=== PATIENT | male | born 1950 | race Caucasian/White ===

== ENCOUNTER 2018-04-03 07:04 | Inpatient (IN) ==
[2018-04-03] MEDS ORDERED: Chlorhexidine 4% Topical 120 APPLIC/120 ML Bottle TOPICAL SCH (08:15)
[2018-04-03] MEDS ORDERED: Metoprolol Tartrate 25 MG Tablet PO ONE (08:15)
[2018-04-03] MEDS ORDERED: Vancomycin Inj 1,000 MG in Sodium Chlor 0.9% Inj 250 ML IV.SIG SCH (08:15)
[2018-04-03] MEDS ORDERED: Sodium Chlor 0.9% Inj 500 ML IV.CONT ONE (08:15)
[2018-04-03] MEDS ORDERED: Chlorhexidine Gluconate 2% 1 Pack (2 Cloths) TOPICAL ONE (08:15)
[2018-04-03] MEDS ORDERED: ceFAZolin 2 GM Premix Inj 2 GM/50 ML PIGGYBACK IV.SIG SCH (08:15)
[2018-04-03] MEDS ORDERED: SODIUM CHLOR 0.9% IV.SIG SCH ×2 (08:30→14:00)
[2018-04-03] MEDS ORDERED: Dexamethasone Inj 20 MG/5 ML Vial IV.PUSH SCH (08:30)
[2018-04-03] MEDS ORDERED: Sodium Chlor 0.9% Inj 40 ML, Bupivacaine Liposo PF 1.3% Inj 20 ML P-ARTICULR SCH ×2 (08:30)
[2018-04-03] MEDS ORDERED: TRANEXAMIC ACID IV.SIG SCH ×2 (08:30→14:00)
[2018-04-03] MEDS ORDERED: Ketamine Inj 50 MG/5 ML Syringe IV.PUSH ONE (09:37)
[2018-04-03] MEDS ORDERED: fentaNYL Citrate Inj 250 MCG/5 ML Ampul ONE (09:38)
[2018-04-03] MEDS ORDERED: Famotidine PF Inj 20 MG/2 ML Vial ONE (09:38)
[2018-04-03] MEDS ORDERED: fentaNYL Citrate Inj 100 MCG/2 ML Ampul ONE ×2 (09:38→13:09)
[2018-04-03] MEDS ORDERED: Lidocaine PF 1% Inj 5 ML Syringe OTHER ONE (10:41)
[2018-04-03] MEDS ORDERED: Glycopyrrolate Inj 1 MG/5 ML Syringe IV.PUSH ONE (10:41)
[2018-04-03] MEDS ORDERED: Neostigmine Inj 5 MG/5 ML Syringe IV.PUSH ONE (10:41)
[2018-04-03] MEDS ORDERED: Morphine Sulfate Inj 2 MG/ML Vial IV.PUSH PRN (12:33)
[2018-04-03] MEDS ORDERED: Zolpidem Tartrate 5 MG Tablet PO PRN (12:33)
[2018-04-03] MEDS ORDERED: Aluminum/Magnesium/Simethacone Susp 30 ML UDC PO PRN (12:33)
[2018-04-03] MEDS ORDERED: Bisacodyl 10 MG Supp RECTAL PRN (12:33)
[2018-04-03] MEDS ORDERED: Post-op Orders (for Pharmacy) OTHER STA (12:33)
--- NOTE | 2018-04-03 12:36 | P.OP ---
- Preoperative Diagnosis (1) Osteoarthritis of right hip - Postoperative Diagnosis (1) Osteoarthritis of right hip Date of procedure: 04/03/18 Procedure: Right total hip arthroplasty Anesthesia: GETA Surgeon: Jos Shoemaker MD [employer] Supervisor: CHEYENNE Tiwari The surgical procedure was assisted by my Advanced Registered Nurse Practitioner. My CURRICULUM AND ASSESSMENT COORDINATOR presence was necessary throughout this case for the manipulation and positioning of the surgical extremity. My CURRICULUM AND ASSESSMENT COORDINATOR was assisting me throughout the duration of this procedure. The skill set of an Advance Registered Nurse Practitioner was medically necessary to complete this procedure. During the surgical case, the certified surgical tech/first assistant was working at the back table and the Advance Registered Nurse Practitioner was directly assisting me. Operation and Findings: IMPLANT DESCRIPTION: 1. [place] Gription Cup, acetabular size 52. 2. [place] AltrX polyethylene, neutral. 4. [place] femoral stem size 13, no collar, standard offset. 5. Femoral head/neck ceramic, 36, +1.5. ESTIMATED BLOOD LOSS: 200 cc. JUSTIFICATION FOR PROCEDURE: The patient has end-stage osteoarthritis to the hip. There is an attached conservative measures pathway form in the chart that describes the nonoperative measures that were undertaken prior to consideration of surgical management. The patient understood the risks and benefits of surgical management. See my office notes for further details. PROCEDURE: The patient was brought back to the operative theatre. Adequate anesthesia was obtained. The patient received intravenous vancomycin and Ancef. The patient was carefully placed on the operative table. The lower extremity was prepped and draped in the usual sterile fashion. Fluoroscopic images were obtained. We made a standard anterior incision over the hip. We dissected through the TFL fascia, exposing the anterior capsule. Arthrotomy was performed in a T-shaped fashion. The capsule was tagged with a #2 FiberWire. End-stage arthritis was identified. Osteotomy was performed through the femoral neck exposing the acetabulum. Remnants of the labrum were resected and osteophytes were removed. We sequentially reamed the acetabulum. We trialed the hip and placed the final cup into position. This was done under fluoroscopic guidance to obtain the appropriate inclination and anteversion. A manhole cover was placed into the acetabular component. We then placed the final polyethylene into position and confirmed that it was well seated. Capsular attachments on the calcar and the inner aspect of the greater trochanter were resected. On the proximal aspect of the femur we used a rongeur , box osteotome, canal finder, sequential broaches and lateralizing rasp. We calcar planed the proximal femur. Then thoroughly irrigated the wound. We trialed the hip with the appropriate size stem. We placed the final stem in to position and trialed again. The hip was stable while it was externally rotated 70 degrees when the leg was lowered to the floor. The final head was applied, and final fluoroscopic images were obtained. The wound was thoroughly irrigated again. Interarticular injection of liposomal bupivacaine was given. The capsule was closed with #2 FiberWire and #1 Vicryl. The deep fascia was closed with a #2 Stratafix, followed by 2-0 Vicryl in the skin and Dermabond dressing. Postop plan is to weight-bear as tolerated. DVT prophylaxis will be performed with SCDs, DENIS hose, early mobilization, and aspirin.
--- NOTE | 2018-04-03 12:58 | XR ---
EXAM DATE: 04/03/2018 12:00 AM EDT AGE/SEX: 67 years / Male INDICATIONS: Placement of total right hip in or. CLINICAL DATA: This is the patient's initial encounter. Patient reports that signs and symptoms have been present for 1 day and indicates a pain score of Nonresponsive. MEDICAL/SURGICAL HISTORY: None. . Total left hip. COMPARISON: No prior exams available for comparison. FINDINGS: Status post placement of a right hip prosthesis. There is good position and alignment of the hip pros thesis with the bony structures. CONCLUSION: Good position and alignment on this postoperative study. Electronically signed by: Nathan Goldman MD 04/03/2018 12:57 PM EDT
--- NOTE | 2018-04-03 13:00 | P.DCO ---
- Physical Therapy Physical Therapy: Gait training, Transfer training, bed to chair Hip: Total hip Right Lower Extremity Weight Bearing: Weight bearing as tolerated Right Lower Extremity Range of Motion: Active ROM - Nursing Dressing changes: Do not change dressing Additional instructions: First dressing change in the office - Certification Need for Home Health services: I have seen patient Joey Nelson on 04/03/18. My clinical findings support the need for the requested home health care services because: Need for Home Health Services: Limited ability to care for self, High risk of falls Homebound Certification: I certify that my clinical findings support that this patient is homebound because: Homebound Certification: Post-op weakness, Unsteady gait/balance
[2018-04-03] MEDS ORDERED: *Meperidine Inj 25 MG/ML Vial PERIprocedural Use ONLY ONE (13:09)
[2018-04-03] MEDS ORDERED: *morphine SULFATE 4 MG/ML PERIprocedure ONLY ONE ×3 (13:15→15:41)
[2018-04-03] MEDS: Sod Chloride 0.9% Inj 1,000 ML IV.CONT SCH (13:47)
--- NOTE | 2018-04-03 14:36 | XR ---
EXAM DATE: 04/03/2018 12:33 PM EDT AGE/SEX: 67 years / Male INDICATIONS: Post-Op Right Hip. CLINICAL DATA: This is the patient's initial encounter. Patient reports that signs and symptoms have been present for 1 day and indicates a pain score of 0/10. MEDICAL/SURGICAL HISTORY: None. . Left Hip Prosthesis. COMPARISON: [facility], CT UROGRAM, 11/26/2017. . FINDINGS: Right hip arthroplasty in place. There is anatomic alignment of the thoracic components. No acute fra cture. Immediate postsurgical soft tissue changes in the right hip. There is also a left hip arthropl asty in place which appears in gross anatomic alignment. CONCLUSION: 1. Status post right hip arthroplasty in anatomic alignment without acute fracture. Electronically signed by: Horacio Rosas MD 04/03/2018 2:35 PM EDT
[2018-04-03] MEDS: Multivitamin/Minerals Therapeutic Tablet PO SCH (21:37)
[2018-04-03] MEDS: Senna/Docusate Sodium 8.6/50 MG Tablet PO SCH (21:38)
[2018-04-04 02:23] VITALS: RESP 18
[2018-04-04] MEDS: Sod Chloride 0.9% Inj 1,000 ML IV.CONT SCH (03:33)
[2018-04-04] MEDS ORDERED: Levothyroxine 50 MCG Tablet PO SCH (06:00)
[2018-04-04 07:13] LABS: Hematocrit 36.5 % (39.0-51.0); Hemoglobin 12.6 gm/dL (13.0-17.0)
--- NOTE | 2018-04-04 07:18 | P.PNOP ---
Subjective Interval history: The patient is resting comfortably in bed in no acute distress. The patient reports minimal pain to the right hip. The patient states he wants to go home today with home health. Physical Exam Vital signs: Vital Signs 04/03/18 07:53 04/03/18 13:01 04/03/18 13:30 Temperature 98.1 F 97.8 F Pulse Rate 70 92 H 89 Respiratory Rate 20 18 22 Blood Pressure 157/89 H 158/72 H 140/73 Pulse Oximetry 97 93 L 94 L 04/03/18 14:30 04/03/18 15:30 04/03/18 20:00 Temperature 97.6 F 98.1 F Pulse Rate 79 77 83 Respiratory Rate 19 17 18 Blood Pressure 142/67 H 137/70 146/82 H Pulse Oximetry 95 97 98 04/04/18 00:00 04/04/18 04:00 Temperature 97.8 F 98 F Pulse Rate 87 70 Respiratory Rate 18 18 Blood Pressure 156/73 H 142/73 H Pulse Oximetry 98 98 Intake & Output 04/03/18 04/04/18 04/04/18 18:59 06:59 18:59 Intake Total 1531 / 1531 620 / 620 Output Total 200 / 200 Balance 1331 / 1331 620 / 620 Weight 56.6 kg 59.6 kg Intake: IV 1291 / 1291 500 / 500 LR 1000 mL Inj 1,000 ML @ 30 1000 / 1000 mls/hr IV.CONT .Q24H [facility] Rx#: [id number] NS Inj 1,000 ML @ 80 mls/hr IV. 191 / 191 400 / 400 CONT .[id number] [facility] Rx#:[id number] Ancef Inj 1,000 MG In NS Inj 100 / 100 100 / 100 100 ML @ 200 mls/hr IV.SIG Q6H [facility] Rx#:[id number] Oral 240 / 240 120 / 120 Output: Estimated Blood Loss 200 / 200 Other: # Voids 1 2 Date of Last Bowel Movement 04/02/18 04/02/18 Weight On Admission 56.6 kg Narrative: The patient's dressing is clean, dry, and intact. EHL/TA/G are intact. 2+ pedal pulse. The patient's calf is soft and nontender. Sensation is intact to light touch distally. Results - Labs CBC & Chem 7: 04/04/18 05:28 Laboratory Results - last 24 hr 04/03/18 04/04/18 07:44 05:28 Hgb 12.6 L Hct 36.5 L Blood Type O Positive Blood Type Recheck Not needed Antibody Screen Negative - Imaging Impressions Hip X-Ray 04/03/18 00:00 CONCLUSION: Good position and alignment on this postoperative study. Hip X-Ray 04/03/18 12:33 CONCLUSION: 1. Status post right hip arthroplasty in anatomic alignment without acute fracture. - Procedures Right total hip arthroplasty Assessment and Plan - Problem List (1) Status post total hip replacement, right Code(s): Z96.641 - Presence of right artificial hip joint Status: Acute (2) Osteoarthritis of right hip Code(s): M16.11 - Unilateral primary osteoarthritis, right hip Status: Acute - Assessment and Plan POD #1: [Right] total hip arthroplasty 1. Weightbearing as tolerated on [right] lower extremity. 2. Aspirin 81 mg twice a day for DVT prophylaxis. 3. Ice as needed for swelling. 4. Stable per ortho for discharge to home health. 5. The patient will follow up with Dr. Shoemaker and/or CHEYENNE Schuler as previously scheduled.
[2018-04-04] MEDS ORDERED: Dexamethasone Inj 20 MG/5 ML Vial IV.PUSH ONE (08:00)
[2018-04-04] MEDS: Senna/Docusate Sodium 8.6/50 MG Tablet PO SCH (08:22)
[2018-04-04] MEDS: Multivitamin/Minerals Therapeutic Tablet PO SCH (08:22)
[2018-04-04 08:44] VITALS: BP 141/72; PULSE 73; TEMP 98; O2SAT 95
[2018-04-04] MEDS ORDERED: Enoxaparin Inj 40 MG/0.4 ML Syringe SQ SCH (12:00)
--- NOTE | 2018-04-05 11:38 | P.DS ---
Date of admission: 04/03/18 07:04 Primary care physician: Jeff Kwon MD Attending physician on discharge: Jos Shoemaker Anticipated date of discharge: 04/04/18 Brief History from admission: The patient was admitted to the hospital for severe OA of the right hip to have a right RADHA. DS: Diagnosis - Discharge Diagnosis (1) Status post total hip replacement, right Status: Acute (2) Osteoarthritis of right hip Status: Acute DS: Summary Hospital Course: The patient was admitted to the hospital for severe OA of the right hip to have a right RADHA. The patient's surgery went well with no complications. The patient is WBAT on the right lower extremity. The patient is on a regular diet. The patient was placed on ASA 81 mg BID post op for DVT prophylaxis. The patient was discharged home with home health and will f/u in the office as previously scheduled with Dr. Shoemaker or Hossein Jacob APRN. - Time Spent with Patient Total time spent providing and/or coordinating discharge services: Greater than 30 minutes - Quality: VTE Deep Vein Thrombosis/Pulmonary Embolism Present on Admission: No Exam Vital signs: Intake & Output 04/04/18 04/05/18 04/05/18 18:59 06:59 18:59 Intake Total 100 / 100 Balance 100 / 100 Intake: IV 100 / 100 Ancef Inj 1,000 MG In NS Inj 100 / 100 100 ML @ 200 mls/hr IV.SIG Q6H [facility] Rx#:[id number] Other: Date of Last Bowel Movement 04/02/18 Narrative: The patient's dressing is clean, dry, and intact. EHL/TA/G are intact. 2+ pedal pulse. The patient's calf is soft and nontender. Sensation is intact to light touch distally. Results Procedures completed during hospitalization: Right total hip arthroplasty - Impressions ITS Impressions Hip X-Ray 04/03/18 12:33 CONCLUSION: 1. Status post right hip arthroplasty in anatomic alignment without acute fracture. Discharge Plan - Discharge Disposition Patient Disposition: W/Home Health Service - Discharge Condition Condition: Stable - Discharge Order Discharge Orders: Discharge Order (Routine); Ordered 04/03/18 Ordered By: Barrington Jacob - Discharge Details Anticipated Discharge Date: 04/04/18 - Physicians Team Primary Care Provider: Jeff Kwon Attending Provider: Jos Shoemaker Other Providers: Nurse Oncall,Agency - Rxs /Orders / Referrals /Forms Prescriptions: Continue cholecalciferol (vitamin D3) [Vitamin D3] 1,000 unit Capsule 1,000 unit PO DAILY levothyroxine 50 mcg Tablet 50 mcg PO DAILY vit B comp with C-calcium carb [B-Complex] 300 mg-150 mg calcium Tablet 1 tab PO DAILY Discontinued fish,bora,flax oils-om3,6,9no1 [Spencer 3-6-9] 1,200 mg Capsule 1 cap PO DAILY vitamin E 200 unit Capsule 200 unit PO DAILY Ambulatory Orders / Order Sets / DME: Adjustable Commode 3-in-1 (1 each) (Routine) Location: Determined by Patient Ordered By: Barrington Jacob Walker With Front Wheels (1 each) (Routine) Location: Determined by Patient Ordered By: Barrington Jacob Referrals: Jos Shoemaker MD [Physician] - See Instructions (f/u in the office as previously scheduled with Dr. Shoemaker or Hossein Jacob, DRUG ABUSE WORKER) Jeff Kwon MD [Primary Care Provider] - See Instructions - Discharge Instructions Patient Printed Instructions: Laxative, Stool Softeners (By mouth), How to Choose and Use a Walker (GEN), Narcotic Pain Management (ED), Fall Prevention ( ED), Total Hip Replacement (DC) Additional Instructions: Prescriptions given prior to surgery. Full weight bearing Follow up as directed
== END 2018-04-04 10:53 | disposition home health service (06) ==
LOC: HSDI 07:04 → N06 17:23
PROVIDERS: ADMIT Orthopaedic Surgery; ATTEND Orthopaedic Surgery